=== PATIENT | female | born 1965 | race Caucasian/White ===

== ENCOUNTER → 2017-02-05 | Outpatient (CLI) | payer MEDICARE ==
[~2017-02-05] MED LIST: BREO ELLIPTA 11 EACH INH; IBUPROFEN800 MG PO; LOVENOX SY40 MG/0.4 SQ; LOVENOX40 MG/0.4 SC; NORCO 5-325 TA1 EACH PO; TESSALON PERLE100 MG PO; TYLENOL 325MG325 MG PO; VENTOLIN HFA8 GM INH; VENTOLIN/PROVE0.5 ML NEB; VITAMIN D50000 UNIT PO
== END ==
LOC: KOH-I 15:55
DX: M70.52 Other bursitis of knee, left knee (principal); Z98.890 Other specified postprocedural states
CPT/HCPCS: 73700

== ENCOUNTER → 2017-03-04 | Outpatient (CLI) | payer MEDICARE, OTHER ==
[2017-03-04 10:34] LABS: HEMOGLOBIN 14.1 gm/dl (12.3-15.3); RED BLOOD COUNT 4.52 M/UL (4.00-5.10); WHITE BLOOD COUNT 10.4 K/UL (4.5-11.0)
[2017-03-04 10:56] LABS: BUN/CREATININE RATIO 9 (0-10)
== END ==
LOC: OPSV2 09:50
PROVIDERS: Orthopaedic Surgery
DX: Z01.812 Encounter for preprocedural laboratory examination (principal); M79.5 Residual foreign body in soft tissue; Z88.5 Allergy status to narcotic agent; Z88.0 Allergy status to penicillin; Z88.8 Allergy status to other drugs, medicaments and biological substances; Z88.2 Allergy status to sulfonamides
CPT/HCPCS: 36415; 80048; 85025

== ENCOUNTER → 2017-03-08 | Day surgery (SDC) | payer MEDICARE, OTHER ==
[~2017-03-08] VITALS: Ht 185.4 cm; Wt 68.0 kg
== END | disposition home or self-care (01) ==
LOC: OR 10:49
DX: S80.252A Superficial foreign body, left knee, initial encounter (principal); Z53.29 Procedure and treatment not carried out because of patient's decision for other reasons; J44.9 Chronic obstructive pulmonary disease, unspecified; F17.210 Nicotine dependence, cigarettes, uncomplicated; Z86.69 Personal history of other diseases of the nervous system and sense organs; Z79.899 Other long term (current) drug therapy; Z88.0 Allergy status to penicillin; Z88.2 Allergy status to sulfonamides; Z88.6 Allergy status to analgesic agent; Z88.8 Allergy status to other drugs, medicaments and biological substances; Z87.81 Personal history of (healed) traumatic fracture; W01.190A Fall on same level from slipping, tripping and stumbling with subsequent striking against furniture, initial encounter
CPT/HCPCS: J3370; J7050; J7120

== ENCOUNTER → 2017-03-22 | Day surgery (SDC) | payer MEDICARE, OTHER ==
[~2017-03-22] VITALS: Ht 185.4 cm; Wt 74.8 kg
[2017-03-22 06:41] LABS: HEMOGLOBIN 13.7 gm/dl (12.3-15.3); RED BLOOD COUNT 4.32 M/UL (4.00-5.10); WHITE BLOOD COUNT 8.9 K/UL (4.5-11.0)
[2017-03-22 06:54] LABS: BUN/CREATININE RATIO 11 (0-10)
== END | disposition home or self-care (01) ==
LOC: OR 06:01
PROVIDERS: Orthopaedic Surgery
PROC: 0SCD4ZZ Extirpation of Matter from Left Knee Joint, Percutaneous Endoscopic Approach (ICD-10-PCS; principal; 2017-03-22 08:15)
DX: M96.89 Other intraoperative and postprocedural complications and disorders of the musculoskeletal system (principal); M23.42 Loose body in knee, left knee; J43.9 Emphysema, unspecified; F17.210 Nicotine dependence, cigarettes, uncomplicated; Z82.49 Family history of ischemic heart disease and other diseases of the circulatory system; Z83.3 Family history of diabetes mellitus; Z80.6 Family history of leukemia; Z88.0 Allergy status to penicillin; Z88.2 Allergy status to sulfonamides; Z88.5 Allergy status to narcotic agent; Z88.8 Allergy status to other drugs, medicaments and biological substances; Z79.899 Other long term (current) drug therapy; Z98.890 Other specified postprocedural states
CPT/HCPCS: 36415; 80048; 85027; J0171; J2250; J3010; J3370; J7050; J7120

== ENCOUNTER → 2020-12-08 | Day surgery (SDC) | payer OTHER ==
[~2020-12-08] MED LIST changes: +BACTROBAN OINT22 GM EXT; +CALCIUM600 MG PO; +CLEOCIN HCL300 MG PO; +COMBIVENT0.074 GM/I INH; +DIFLUCAN100 MG PO; +IBUPROFEN600 MG PO; +INCRUSE ELLI62.5 MCG INH; +NORCO 7.5-3251 EACH PO; +PEPCID20 MG PO; +TYLENOL 500 MG500 MG PO; +TYLENOL325 MG PO; +VENTOLIN HFA 66.7 GM INH; +VITAMIN D31250 MCG PO; +[UNRECOGNIZED DRUG - OTHER] INH
== END | disposition home or self-care (01) ==
LOC: OR 08:06
DX: D12.2 Benign neoplasm of ascending colon (principal); D12.3 Benign neoplasm of transverse colon; D12.8 Benign neoplasm of rectum; K64.0 First degree hemorrhoids; J44.9 Chronic obstructive pulmonary disease, unspecified; M19.90 Unspecified osteoarthritis, unspecified site; F17.290 Nicotine dependence, other tobacco product, uncomplicated; Z88.0 Allergy status to penicillin; Z88.5 Allergy status to narcotic agent; Z88.2 Allergy status to sulfonamides; Z88.8 Allergy status to other drugs, medicaments and biological substances; Z79.899 Other long term (current) drug therapy
CPT/HCPCS: J2001; J2704; J7040

== ENCOUNTER → 2021-02-09 | Outpatient (CLI) | payer OTHER | LOC: CT 02-08 15:00 | DX: R63.4 Abnormal weight loss (principal) | CPT/HCPCS: Q9967 ==

== ENCOUNTER 2022-01-23 14:21 | Emergency (ER) | payer MEDICARE, OTHER ==
[2022-01-23] MEDS ORDERED: NAPROSYN500 MG PO (15:19)
[2022-01-23] MEDS ORDERED: CLEOCIN HCL300 MG PO (15:19)
== END 2022-01-23 16:15 | disposition home or self-care (01) ==
LOC: ER1 14:21
DX: K04.7 Periapical abscess without sinus (principal); K02.9 Dental caries, unspecified; J44.9 Chronic obstructive pulmonary disease, unspecified; Z88.0 Allergy status to penicillin; F17.200 Nicotine dependence, unspecified, uncomplicated; Z88.2 Allergy status to sulfonamides; Z88.1 Allergy status to other antibiotic agents
CPT/HCPCS: 96372; 99282; J1885